=== PATIENT | male | born 1935 | race Caucasian/White ===

== ENCOUNTER 2017-09-22 10:07 | Inpatient (IN) | payer MEDICARE, BC ==
--- NOTE | 2017-09-22 11:42 | CR ---
Chest 2V INDICATION: sob FINDINGS: Comparison not available. Azygos fissure, normal variant. Shallow inspiration. Heart size i s prominent. Mild prominence of the pulmonary vascularity. Mixed interstitial and airspace opacities in bilateral mid and lower lungs. Differential considerations include CHF and atypical infectious pro cess. Chronic interstitial lung disease is also in the differential diagnosis.
[2017-09-22] MEDS ORDERED: Sodium Chloride 0.9% 1,000 ML IV SCH (12:00)
--- NOTE | 2017-09-22 12:40 | EDM.PDOC ---
ED HPI GENERAL MEDICAL PROBLEM - General Chief Complaint: Respiratory Problem Stated Complaint: SOB Time Seen by Provider: 09/22/17 10:20 Source of Information: Reports: Patient, Other ( sent from the clinic) History Limitations: Reports: No Limitations - History of Present Illness INITIAL COMMENTS - FREE TEXT/NARRATIVE: Pt states he has been sob and having difficulty moving around, Onset: Gradual, Other ( Pt has had several days of sob. ) Location: Reports: Chest, Other (pt has not noted ankle swelling. ) Associated Symptoms: Reports: Shortness of Breath, Weakness - Related Data Allergies Allergy/AdvReac Type Severity Reaction Status Date / Time No Known Allergies Allergy Verified 09/22/17 10:17 Home Meds: Home Meds Triamcinolone Acetonide [Triamcinolone Acetonide 0.1% Crm] 1 cm TOP BID PRN [History] Albuterol [Ventolin HFA] 2 puff INH QID PRN 08/29/16 [History] Allopurinol [Zyloprim] 100 mg PO DAILY 08/29/16 [History] Benzonatate [Tessalon Perles] 200 mg PO TID PRN 08/29/16 [History] Insulin Detemir [Levemir Flextouch] 24 units SUBCUT DAILY 08/29/16 [History] Tamsulosin [Flomax] 0.4 mg PO DAILY 08/29/16 [History] Topiramate [Topamax] 50 mg PO BID 08/29/16 [History] Aspirin 325 mg PO DAILY 09/22/17 [History] Clotrimazole [Clotrimazole 1%] DAILY 09/22/17 [History] Finasteride [Proscar] 5 mg PO DAILY 09/22/17 [History] Lisinopril/Hydrochlorothiazide [Lisinopril-Hctz 20-12.5 mg Tab] 09/22/17 [ History] Mupirocin Oint [Bactroban Oint] 09/22/17 [History] Omeprazole 40 mg PO DAILY 09/22/17 [History] Prednisone [IJD: predniSONE] 20 mg PO BID 09/22/17 [History] Ranitidine [Zantac] 150 mg PO BID 09/22/17 [History] Tadalafil [Cialis] 5 mg PO ASDIRECTED PRN 09/22/17 [History] Past Medical History HEENT History: Reports: Cataract, Impaired Vision Cardiovascular History: Reports: Hypertension Other Cardiovascular History: ENLARGED HEART Other Genitourinary History: stage 3 kidney disease Neurological History: Reports: Neuropathy, Diabetic Psychiatric History: Reports: Depression Endocrine/Metabolic History: Reports: Diabetes, Type II Other Hematologic History: dislipidemia Oncologic (Cancer) History: Reports: Colon - Past Surgical History GI Surgical History: Reports: Colon, Colonoscopy Other Oncologic Surgeries/Procedures: cancerous colon tumor removed 2005. Malignant neoplasm of colon Social & Family History - Tobacco Use Smoking Status *Q: Unknown Ever Smoked Years of Tobacco use: 12 Second Hand Smoke Exposure: No - Caffeine Use Caffeine Use: Reports: Coffee - Alcohol Use Days Per Week of Alcohol Use: 0 - Recreational Drug Use Recreational Drug Use: No ED ROS GENERAL - Review of Systems Review Of Systems: See Below Constitutional: Reports: Weakness HEENT: Reports: No Symptoms Respiratory: Reports: Shortness of Breath, Cough Cardiovascular: Reports: No Symptoms Endocrine: Reports: No Symptoms GI/Abdominal: Reports: No Symptoms : Reports: No Symptoms Musculoskeletal: Reports: No Symptoms Skin: Reports: No Symptoms ED EXAM, GENERAL - Physical Exam Exam: See Below Free Text/Narrative:: pt arrived with a history of progressive weakness and shortness of breath. Exam Limited By: No Limitations General Appearance: Alert, Mild Distress, Other (pt gets very winded when he moves around. ) Ears: Normal TMs Nose: Normal Inspection Throat/Mouth: Normal Inspection Head: Atraumatic Neck: Normal Inspection Respiratory/Chest: Decreased Breath Sounds, Crackles, Other (Pt does have rales to the mid lung area. ) Cardiovascular: Regular Rate, Rhythm, Other (pt has not had chest pain. ) GI/Abdominal: Soft, Non-Tender (Male) Exam: Deferred Rectal (Males) Exam: Deferred Back Exam: Normal Inspection Extremities: Other (pt has not had pain or swelling in his legs. ) Neurological: Alert, Oriented, Other (pt is a poor historian) Psychiatric: Anxious Course - Vital Signs Last Recorded V/S: Last Vital Signs Temp 36.9 C 09/22/17 10:17 Pulse 107 H 09/22/17 10:17 Resp 18 09/22/17 10:17 BP 131/62 09/22/17 10:17 Pulse Ox 95 09/22/17 10:17 Orthostatic Blood Pressure [ 128/70 Sitting] - Orders/Labs/Meds Orders: Active Orders 24 hr Category Date Time Status Patient Status Manage Transfer [TRANSFER] Routine ADT 09/22/17 12:05 Active EKG Documentation Completion [RC] ASDIRECTED Care 09/22/17 10:28 Active Orthostatic Vital Signs [RC] ASDIRECTED Care 09/22/17 11:54 Active INFLUENZA A+B AG SCREEN [RM] Stat Lab 09/22/17 12:01 Uncollected Sodium Chloride 0.9% [Normal Saline] 1,000 ml Med 09/22/17 12:00 Active IV ASDIRECTED Resuscitation Status Routine Resus Stat 09/22/17 12:08 Ordered EKG 12 Lead [EK] Routine Ther 09/22/17 10:28 Ordered Medication Orders Sodium Chloride (Normal Saline) 1,000 mls @ 250 mls/hr IV ASDIRECTED ELO Labs: Laboratory Tests 09/22/17 09/22/17 09/22/17 Range/Units 10:37 10:37 10:37 WBC 6.7 (4.5-11.0) K/uL RBC 3.84 L (4.30-5.90) M/uL Hgb 10.9 L (12.0-15.0) g/dL Hct 33.0 L (40.0-54.0) % MCV 86 (80-98) fL MCH 28 (27-31) pg MCHC 33 (32-36) % Plt Count 152 (150-400) K/uL Add Manual Diff Yes Neutrophils % (Manual) 67 H (36-66) % Band Neutrophils % 2 L (5-11) % Lymphocytes % (Manual) 21 L (24-44) % Monocytes % (Manual) 9 H (2-6) % Eosinophils % (Manual) 1 L (2-4) % Sodium 141 (140-148) mmol/L Potassium 4.8 (3.6-5.2) mmol/L Chloride 109 H (100-108) mmol/L Carbon Dioxide 23 (21-32) mmol/L Anion Gap 13.8 (5.0-14.0) mmol/L BUN 38 H (7-18) mg/dL Creatinine 2.1 H (0.8-1.3) mg/dL Est Cr Clr Drug Dosing 29.45 mL/min Estimated GFR (MDRD) 31 L (>60) Glucose 182 H (74-106) mg/dL Lactic Acid (0.4-2.0) mmol/L Calcium 8.3 L (8.5-10.1) mg/dL Total Bilirubin 0.7 (0.2-1.0) mg/dL AST 13 L (15-37) U/L ALT 21 (12-78) U/L Alkaline Phosphatase 63 (46-116) U/L Creatine Kinase 41 (39-308) U/L Troponin I 0.035 (0.000-0.056) ng/mL NT-Pro-B Natriuret Pep (5-450) pg/mL Total Protein 5.4 L (6.4-8.2) g/dL Albumin 2.9 L (3.4-5.0) g/dL Globulin 2.5 (2.3-3.5) g/dL Albumin/Globulin Ratio 1.2 (1.2-2.2) Urine Color Urine Appearance Urine pH (4.5-8.0) Ur Specific [place] (1.008-1.030) Urine Protein (NEGATIVE) mg/dL Urine Glucose (UA) (NEGATIVE) mg/dL Urine Ketones (NEGATIVE) mg/dL Urine Occult Blood (NEGATIVE) Urine Nitrite (NEGAITVE) Urine Bilirubin (NEGATIVE) Urine Urobilinogen (NORMAL) mg/dL Ur Leukocyte Esterase (NEGATIVE) Urine RBC (0-5) Urine WBC (0-5) Ur Epithelial Cells Amorphous Sediment Urine Bacteria Urine Mucus 09/22/17 09/22/17 09/22/17 Range/Units 11:00 11:32 11:52 WBC (4.5-11.0) K/uL RBC (4.30-5.90) M/uL Hgb (12.0-15.0) g/dL Hct (40.0-54.0) % MCV (80-98) fL MCH (27-31) pg MCHC (32-36) % Plt Count (150-400) K/uL Add Manual Diff Neutrophils % (Manual) (36-66) % Band Neutrophils % (5-11) % Lymphocytes % (Manual) (24-44) % Monocytes % (Manual) (2-6) % Eosinophils % (Manual) (2-4) % Sodium (140-148) mmol/L Potassium (3.6-5.2) mmol/L Chloride (100-108) mmol/L Carbon Dioxide (21-32) mmol/L Anion Gap (5.0-14.0) mmol/L BUN (7-18) mg/dL Creatinine (0.8-1.3) mg/dL Est Cr Clr Drug Dosing mL/min Estimated GFR (MDRD) (>60) Glucose (74-106) mg/dL Lactic Acid 1.2 (0.4-2.0) mmol/L Calcium (8.5-10.1) mg/dL Total Bilirubin (0.2-1.0) mg/dL AST (15-37) U/L ALT (12-78) U/L Alkaline Phosphatase (46-116) U/L Creatine Kinase (39-308) U/L Troponin I (0.000-0.056) ng/mL NT-Pro-B Natriuret Pep 252 (5-450) pg/mL Total Protein (6.4-8.2) g/dL Albumin (3.4-5.0) g/dL Globulin (2.3-3.5) g/dL Albumin/Globulin Ratio (1.2-2.2) Urine Color Yellow Urine Appearance Clear Urine pH 7.0 (4.5-8.0) Ur Specific [place] 1.005 L (1.008-1.030) Urine Protein Negative (NEGATIVE) mg/dL Urine Glucose (UA) Normal (NEGATIVE) mg/dL Urine Ketones Negative (NEGATIVE) mg/dL Urine Occult Blood Negative (NEGATIVE) Urine Nitrite Negative (NEGAITVE) Urine Bilirubin Negative (NEGATIVE) Urine Urobilinogen Normal (NORMAL) mg/dL Ur Leukocyte Esterase Negative (NEGATIVE) Urine RBC 0-5 (0-5) Urine WBC 0-5 (0-5) Ur Epithelial Cells Few Amorphous Sediment Not seen Urine Bacteria Few Urine Mucus Not seen Meds: Medications Generic Name Dose Route Start Last Admin Trade Name Freq PRN Reason Stop Dose Admin Sodium Chloride 1,000 mls @ 250 mls/hr 09/22/17 12:00 Normal Saline IV ASDIRECTED [facility] - Re-Assessments/Exams Free Text/Narrative Re-Assessment/Exam: 09/22/17 12:41 pt has a creatnine of 2.1. He has normal cardiac enzymes and bnp. His chest xray shows a definite infiltrate and this does look atypical, interstial. Pt has a hg of 10.7. Departure - Departure Time of Disposition: 12:43 Disposition: Admitted As Inpatient 68 Condition: Fair Clinical Impression: Atypical pneumonia, Renal insufficiency - Discharge Information Referrals: Charles Saini MD [Primary Care Provider] - Care Plan Goals: admit to Hosp. - My Orders Last 24 Hours: My Active Orders 09/22/17 10:28 EKG Documentation Completion [RC] ASDIRECTED EKG 12 Lead [EK] Routine 09/22/17 11:54 Orthostatic Vital Signs [RC] ASDIRECTED 09/22/17 12:00 Sodium Chloride 0.9% [Normal Saline] 1,000 ml IV ASDIRECTED 09/22/17 12:01 INFLUENZA A+B AG SCREEN [RM] Stat - Assessment/Plan Last 24 Hours: My Active Orders 09/22/17 10:28 EKG Documentation Completion [RC] ASDIRECTED EKG 12 Lead [EK] Routine 09/22/17 11:54 Orthostatic Vital Signs [RC] ASDIRECTED 09/22/17 12:00 Sodium Chloride 0.9% [Normal Saline] 1,000 ml IV ASDIRECTED 09/22/17 12:01 INFLUENZA A+B AG SCREEN [RM] Stat
--- NOTE | 2017-09-22 12:49 | PCM.HP ---
H&P History of Present Illness - General Date of Service: 09/22/17 Admit Problem/Dx: Source of Information: Patient, Provider, RN Notes Reviewed History Limitations: Reports: No Limitations - History of Present Illness Initial Comments - Free Text/Narative: Mr. Tarango is a 81-year-old gentleman who is admitted through the emergency department because of profound weakness and orthostasis. He was feeling well until 3 days ago when he developed progressive weakness associated with lightheadedness with standing. He is noted to have a decrease in one pressure from lying to standing. He does have some underlying pulmonary disease but denies these been more short of breath and also denies fever, chills, or sweats. He has a chronic cough but does not think that it significantly worse over the past few days. He has noted onset of pain in his upper back lower neck that seem to come on about the same time as the weakness. Chest x-ray shows evidence of bilateral infiltrates, infection versus pulmonary fibrosis. White blood cell count is normal, other than a mild tachycardia and orthostasis, has been hemodynamically stable in the emergency department. - Related Data Allergies/Adverse Reactions: Allergies Allergy/AdvReac Type Severity Reaction Status Date / Time No Known Allergies Allergy Verified 09/22/17 10:17 Home Medications: Home Meds Triamcinolone Acetonide [Triamcinolone Acetonide 0.1% Crm] 1 cm TOP BID PRN [History] Albuterol [Ventolin HFA] 2 puff INH QID PRN 08/29/16 [History] Allopurinol [Zyloprim] 100 mg PO DAILY 08/29/16 [History] Benzonatate [Tessalon Perles] 200 mg PO TID PRN 08/29/16 [History] Insulin Detemir [Levemir Flextouch] 24 units SUBCUT DAILY 08/29/16 [History] Tamsulosin [Flomax] 0.4 mg PO DAILY 08/29/16 [History] Topiramate [Topamax] 50 mg PO BID 08/29/16 [History] Aspirin 325 mg PO DAILY 09/22/17 [History] Clotrimazole [Clotrimazole 1%] DAILY 09/22/17 [History] Finasteride [Proscar] 5 mg PO DAILY 09/22/17 [History] Lisinopril/Hydrochlorothiazide [Lisinopril-Hctz 20-12.5 mg Tab] 09/22/17 [ History] Mupirocin Oint [Bactroban Oint] 09/22/17 [History] Omeprazole 40 mg PO DAILY 09/22/17 [History] Prednisone [IJD: predniSONE] 20 mg PO BID 09/22/17 [History] Ranitidine [Zantac] 150 mg PO BID 09/22/17 [History] Tadalafil [Cialis] 5 mg PO ASDIRECTED PRN 09/22/17 [History] Past Medical History HEENT History: Reports: Cataract, Impaired Vision Cardiovascular History: Reports: Hypertension Other Cardiovascular History: ENLARGED HEART Other Genitourinary History: stage 3 kidney disease Neurological History: Reports: Neuropathy, Diabetic Psychiatric History: Reports: Depression Endocrine/Metabolic History: Reports: Diabetes, Type II Other Hematologic History: dislipidemia Oncologic (Cancer) History: Reports: Colon - Past Surgical History GI Surgical History: Reports: Colon, Colonoscopy Other Oncologic Surgeries/Procedures: cancerous colon tumor removed 2005. Malignant neoplasm of colon Social & Family History - Tobacco Use Smoking Status *Q: Unknown Ever Smoked Years of Tobacco use: 12 Second Hand Smoke Exposure: No - Caffeine Use Caffeine Use: Reports: Coffee - Alcohol Use Days Per Week of Alcohol Use: 0 - Recreational Drug Use Recreational Drug Use: No H&P Review of Systems - Review of Systems: Review Of Systems: See Below General: Reports: Weakness. Denies: Fever, Chills, Diaphoresis, Decreased Appetite HEENT: Reports: No Symptoms Pulmonary: Reports: Shortness of Breath, Cough. Denies: Wheezing, Pleuritic Chest Pain, Sputum, Hemoptysis Cardiovascular: Reports: Dyspnea on Exertion, Lightheadedness. Denies: Chest Pain, Palpitations, Orthopnea, PND, Edema, Syncope Gastrointestinal: Reports: No Symptoms Genitourinary: Reports: No Symptoms Musculoskeletal: Reports: Neck Pain, Back Pain Skin: Reports: No Symptoms Psychiatric: Reports: No Symptoms Neurological: Reports: No Symptoms Hematologic/Lymphatic: Reports: No Symptoms Immunologic: Reports: No Symptoms Exam - Exam Exam: See Below - Vital Signs Vital Signs: Last Vital Signs Temp 98.4 F 09/22/17 10:17 Pulse 107 H 09/22/17 10:17 Resp 18 09/22/17 10:17 BP 131/62 09/22/17 10:17 Pulse Ox 95 09/22/17 10:17 Orthostatic Blood Pressure [ 135/74 Standing] Orthostatic Blood Pressure [ 128/70 Sitting] Weight: 179 lb - Exam Quality Assessment: DVT Prophylaxis. No: Supplemental Oxygen General: Alert, Oriented, Cooperative, Mild Distress HEENT: Conjunctiva Clear, Hearing Intact, Normal Nasal Septum, Posterior Pharynx Clear, Pupils Equal. No: Mucosa Moist & [place] Neck: Supple, Trachea Midline, +2 Carotid Pulse wo Bruit Lungs: Decreased Breath Sounds, Rales. No: Crackles, Rhonchi, Rub, Stridor Cardiovascular: Regular Rhythm, Normal S1, Normal S2, Tachycardia. No: Irregular Rhythm, Bradycardia, Systolic Murmur, Diastolic Murmur GI/Abdominal Exam: Soft, Non-Tender, No Organomegaly, No Distention Back Exam: Normal Inspection, Full Range of Motion, Paraspinal Tenderness, Vertebral Tenderness Extremities: Non-Tender, No Pedal Edema Skin: Warm, Dry, Intact Neurological: Cranial Nerves Intact, Strength Equal Bilateral, Normal Speech, Normal Tone, Sensation Intact. No: Focal Deficit Neuro Extensive - Mental Status: Alert, Oriented x3, Normal Mood/Affect, Normal Cognition, Memory Intact - Patient Data Result Diagrams: 09/22/17 10:37 09/22/17 10:37 *Q Meaningful Use (ADM) - VTE *Q VTE Criteria *Q: VTE Pharmacological Contraindications *Q: Renal Impairment - VTE Risk Assess *Q Each Risk Factor Represents 1 Point: Serious lung disease including pneumonia Total Score 1 Point Risk Factors: 1 Each Risk Factor Represents 2 Points: None Total Score 2 Point Risk Factors: 0 Each Risk Factor Represents 3 Points: Age 75 Years or Greater Total Score 3 Point Risk Factors: 3 Each Risk Factor Represents 5 Points: None Total Score 5 Point Risk Factors: 0 Venous Thromboembolism Risk Factor Score *Q: 4 - Stroke *Q Stroke Criteria *Q: - AMI *Q AMI Criteria *Q: Problem List Initiated/Reviewed/Updated: Yes Orders Last 24hrs: Active Orders 24 hr Category Date Time Status Chest wo Cont [CT] Stat Exams 09/22/17 12:42 Ordered Resuscitation Status Routine Resus Stat 09/22/17 12:08 Ordered Medication Orders Sodium Chloride (Normal Saline) 1,000 mls @ 250 mls/hr IV ASDIRECTED [facility] Assessment/Plan Comment:: ASSESSMENT AND PLAN ORTHOSTATIC HYPOTENSION AND WEAKNESS-symptoms present for 3 days, white blood cell count normal. Possible underlying viral infection, chest x-ray shows bilateral pulmonary infiltrates. He denies increased shortness of breath or worsening of his chronic cough. -Evaluate for other source of infection including urinalysis -IV fluids for hydration -Cardiac monitoring -Orthostatic vital signs ABNORMAL CHEST C-OJB-[id number] infiltrates versus pulmonary fibrosis -CT scan of the chest to further evaluate TYPE 2 DIABETES MELLITUS -Continue usual dose of long-acting insulin -Low-dose sliding scale NovoLog -4 times a day glucometers CHRONIC KIDNEY DISEASE STAGE III -Closely monitor urine output and renal function UPPER BACK PAIN-he denies a precipitating injury. Most of tenderness seems to be in the paraspinous muscles, likely secondary to muscle strain -Continue to monitor and consider further evaluation if symptoms persist or worsen MAINTENANCE ISSUES -DVT prophylaxis; Lovenox 30 mg subcutaneous daily -GI prophylaxis; continue outpatient PPI therapy -[place] catheter; not indicated -Nutrition; consistent carb diet -Nicotine dependence; not required CODE STATUS-FULL CODE ADMISSION STATUS-patient will be admitted to inpatient status, expect at least a 2 night hospital stay for evaluation and management of problems as outlined above. At the time of this admission I do not reasonably expected evaluation and management of this problem will require more than a 96 hour hospital stay. DISPOSITION-anticipate discharge to home after the hospital stay. PRIMARY CARE PROVIDER-Dr. Saini
[2017-09-22] MEDS ORDERED: Albuterol 8 GM Inhaler INH PRN (13:36)
[2017-09-22] MEDS ORDERED: Sodium Chloride 0.9% 10 ML Syringe FLUSH PRN (13:36)
[2017-09-22] MEDS ORDERED: Albuterol 0.083% 2.5 MG/3 ML Neb Soln NEB PRN (13:36)
[2017-09-22] MEDS ORDERED: oxyCODONE 5 MG Tab PO PRN (13:36)
[2017-09-22] MEDS ORDERED: Polyethylene Glycol 3350 Powder 17 GM Packet PO PRN (13:36)
[2017-09-22] MEDS ORDERED: Magnesium Hydroxide 400 MG/5 ML Susp 30 ML Cup PO PRN (13:36)
[2017-09-22] MEDS ORDERED: Ondansetron 4 MG/2 ML SDV IV PRN (13:36)
[2017-09-22] MEDS ORDERED: 50% Dextrose in Water 50 ML Syringe IV PRN (13:36)
[2017-09-22] MEDS ORDERED: Benzonatate 100 MG Cap PO PRN (13:36)
[2017-09-22] MEDS ORDERED: Glucose Gel 15 GM in 37.5 GM Tube PO PRN (13:36)
[2017-09-22] MEDS ORDERED: Lactated Ringers 500 ML IV ONE (13:45)
--- NOTE | 2017-09-22 13:45 | CT ---
Chest wo Cont Total DLP 335 mGycm. INDICATION: Bilateral infiltrates versus fibrosis on CXR COMPARISON: CT chest 05/14/2015. FINDINGS: Slight interval worsening of chronic appearing interstitial infiltrates most marked periphe rally throughout both lungs. No definitive honeycombing. Benign calcified granuloma in the lingula. N o new focal consolidation. Azygos fissure, normal variant. Presumed renal cysts. Stable nodularity of the adrenal glands. Exam otherwise negative. IMPRESSION: Slight interval worsening of chronic appearing interstitial infiltrates. Differential con siderations include early UIP and NSIP.
[2017-09-22] MEDS ORDERED: Lactated Ringers 1,000 ML IV SCH (14:00)
[2017-09-22] MEDS ORDERED: Enoxaparin 30 MG/0.3 ML Syringe SUBCUT SCH (15:00)
[2017-09-22] MEDS ORDERED: Albuterol/Ipratropium 3.0-0.5 MG/3 ML Neb Soln NEB SCH (15:00)
[2017-09-22] MEDS: Insulin Aspart 100 Units/ML 3 ML Pen SUBCUT SCH ×2 (17:04→20:57)
[2017-09-22] MEDS: Topiramate 25 MG Tab PO SCH (20:57)
[2017-09-22] MEDS ORDERED: TOPIRAMATE 50 MG PO SCH (21:00)
[2017-09-22] MEDS ORDERED: Non-Formulary Medication 1 Each (Ranitidine [Zantac] 150 MG) PO SCH (21:00)
[2017-09-22] MEDS: Lactated Ringers 1,000 ML IV SCH (22:57)
[2017-09-23] MEDS: Lactated Ringers 1,000 ML IV SCH (07:04)
[2017-09-23] MEDS: Insulin Aspart 100 Units/ML 3 ML Pen SUBCUT SCH ×4 (07:45→21:07)
[2017-09-23] MEDS ORDERED: Non-Formulary Medication 1 Each (Aspirin [Aspirin] 325 MG) PO SCH (09:00)
[2017-09-23] MEDS ORDERED: Non-Formulary Medication 1 Each (Omeprazole [Omeprazole] 40 MG) PO SCH (09:00)
[2017-09-23] MEDS: Pantoprazole 40 MG Tab.CR PO SCH (09:04)
[2017-09-23] MEDS: Tamsulosin 0.4 MG Cap.ER PO SCH (09:04)
[2017-09-23] MEDS: Insulin Detemir 100 Units/ML 3 ML Pen SUBCUT SCH (09:04)
[2017-09-23] MEDS: Aspirin 325 MG Tab.EC PO SCH (09:04)
[2017-09-23] MEDS: Finasteride 5 MG Tab PO SCH (09:08)
[2017-09-23] MEDS: Topiramate 25 MG Tab PO SCH ×2 (09:08→21:08)
[2017-09-23] MEDS: Allopurinol 100 MG Tab PO SCH (09:09)
--- NOTE | 2017-09-23 10:03 | PCM.PN ---
- General Info Date of Service: 09/23/17 Subjective Update: Mr. Tarango was admitted yesterday with weakness and lightheadedness, initially felt as though he probably had some pneumonia. CT scan was obtained and showed evidence of pulmonary fibrosis but no obvious infectious infiltrate. He's feeling somewhat better following hydration and has not had significant drop in orthostatic pressures since admission. Continues to experience significant upper back pain and after hydration there's been further drop in hemoglobin level. He does have significant chronic kidney disease which may be a factor in his ongoing anemia. Functional Status: Reports: Tolerating Diet, Urinating - Review of Systems General: Reports: Weakness. Denies: Fever, Chills Pulmonary: Reports: Shortness of Breath, Cough. Denies: Pleuritic Chest Pain, Sputum, Hemoptysis, Wheezing Cardiovascular: Reports: Dyspnea on Exertion. Denies: Chest Pain, Palpitations , Orthopnea, PND, Edema Gastrointestinal: Reports: No Symptoms - Patient Data Vitals - Most Recent: Last Vital Signs Temp 98.0 F 09/23/17 07:00 Pulse 94 09/23/17 08:37 Resp 20 09/23/17 07:00 BP 133/59 L 09/23/17 08:37 Pulse Ox 66 L 09/23/17 08:37 Orthostatic Blood Pressure [ 130/48 lying] Orthostatic Blood Pressure [ 133/56 Standing] Orthostatic Blood Pressure [ 138/60 Sitting] Weight - Most Recent: 175 lb 3.2 oz I&O - Last 24 Hours: Intake & Output 09/22/17 09/23/17 09/23/17 22:59 06:59 14:59 Intake Total 500 2800 Balance 500 2800 Lab Results Last 24 Hours: Laboratory Results - last 24 hr 09/23/17 09/23/17 09/23/17 Range/Units 04:55 04:55 04:55 WBC 5.2 (4.5-11.0) K/uL RBC 3.37 L (4.30-5.90) M/uL Hgb 9.3 L (12.0-15.0) g/dL Hct 29.2 L (40.0-54.0) % MCV 87 (80-98) fL MCH 28 (27-31) pg MCHC 32 (32-36) % Plt Count 134 L (150-400) K/uL Add Manual Diff Yes Neutrophils % (Manual) 67 H (36-66) % Band Neutrophils % 1 L (5-11) % Lymphocytes % (Manual) 20 L (24-44) % Monocytes % (Manual) 12 H (2-6) % Sodium 141 (140-148) mmol/L Potassium 4.6 (3.6-5.2) mmol/L Chloride 111 H (100-108) mmol/L Carbon Dioxide 23 (21-32) mmol/L Anion Gap 11.6 (5.0-14.0) mmol/L BUN 29 H (7-18) mg/dL Creatinine 1.6 H (0.8-1.3) mg/dL Est Cr Clr Drug Dosing 38.65 mL/min Estimated GFR (MDRD) 42 L (>60) Glucose 153 H (74-106) mg/dL Calcium 8.2 L (8.5-10.1) mg/dL TSH, Ultra Sensitive 0.832 (0.358-3.740) uIU/mL Derek Results Last 24 Hours: Microbiology 09/22/17 12:46 Influenza Type A Antigen Screen - Final Nasopharyngeal Swab - Nare, Left NEGATIVE INFLUENZA A VIRUS AG Influenza Type B Antigen Screen - Final NEGATIVE INFLUENZA B VIRUS AG Med Orders - Current: Current Medications Acetaminophen (Tylenol) 650 mg PO Q4H PRN PRN Reason: Pain (Mild 1-3)/fever Albuterol (Ventolin Hfa) 0 gm INH QID PRN PRN Reason: Cough Albuterol (Proventil Neb Soln) 2.5 mg NEB Q4H PRN PRN Reason: Shortness Of Breath/wheezing Allopurinol (Zyloprim) 100 mg PO DAILY [facility] Last Admin: 09/23/17 09:09 Dose: 100 mg Aspirin (Ecotrin) 325 mg PO DAILY [facility] Last Admin: 09/23/17 09:04 Dose: 325 mg Benzonatate (Tessalon Perles) 200 mg PO TID PRN PRN Reason: Cough Dextrose (Glutose 15) 15 gm PO ASDIRECTED PRN PRN Reason: Hypoglycemia Dextrose/Water (Dextrose 50% In Water) 50 ml IV ASDIRECTED PRN PRN Reason: Hypoglycemia Enoxaparin Sodium (Lovenox) 30 mg SUBCUT Q24H [facility] Last Admin: 09/22/17 15:02 Dose: 30 mg Finasteride (Proscar) 5 mg PO DAILY [facility] Last Admin: 09/23/17 09:08 Dose: 5 mg Lactated Ringer's (Ringers, Lactated) 1,000 mls @ 125 mls/hr IV ASDIRECTED [facility] Last Admin: 09/23/17 07:04 Dose: 125 mls/hr Insulin Aspart (Novolog) 0 unit SUBCUT QIDACANDBED [facility] PRN Reason: Protocol Last Admin: 09/23/17 07:45 Dose: Not Given Insulin Detemir (Levemir) 24 unit SUBCUT DAILY [facility] Last Admin: 09/23/17 09:04 Dose: 24 units Magnesium Hydroxide (Milk Of Magnesia) 30 ml PO Q12H PRN PRN Reason: Constipation Ondansetron HCl (Zofran) 4 mg IV Q4H PRN PRN Reason: Nausea/Vomiting Oxycodone HCl (Oxycodone) 5 mg PO Q4H PRN PRN Reason: Pain (moderate 4-6) Last Admin: 09/23/17 09:13 Dose: 5 mg Pantoprazole Sodium (Protonix) 40 mg PO ACBREAKFAST [facility] Last Admin: 09/23/17 09:04 Dose: 40 mg Polyethylene Glycol (Miralax) 17 gm PO DAILY PRN PRN Reason: Constipation Ranitidine HCl (Zantac) 150 mg PO BID [facility] Last Admin: 09/23/17 09:08 Dose: 150 mg Senna/Docusate Sodium (Senna Plus) 1 tab PO BID PRN PRN Reason: Constipation Sodium Chloride (Saline Flush) 10 ml FLUSH ASDIRECTED PRN PRN Reason: Keep Vein Open Tamsulosin HCl (Flomax) 0.4 mg PO DAILY [facility] Last Admin: 09/23/17 09:04 Dose: 0.4 mg Topiramate (Topamax) 50 mg PO BID [facility] Last Admin: 09/23/17 09:08 Dose: 50 mg Discontinued Medications Albuterol/Ipratropium (Duoneb 3.0-0.5 Mg/3 Ml) 3 ml NEB QIDRT [facility] Sodium Chloride (Normal Saline) 1,000 mls @ 250 mls/hr IV ASDIRECTED [facility] Last Admin: 09/22/17 12:47 Dose: 250 mls/hr Lactated Ringer's (Ringers, Lactated) 1,000 mls @ 250 mls/hr IV ASDIRECTED ELO Stop: 09/22/17 20:00 Last Admin: 09/22/17 14:36 Dose: 250 mls/hr - Exam Quality Assessment: Supplemental Oxygen, DVT Prophylaxis General: Alert, Oriented, Cooperative, Mild Distress Lungs: Normal Respiratory Effort, Crackles. No: Rales, Rhonchi, Wheezing Cardiovascular: Regular Rate, Regular Rhythm, No Murmurs GI/Abdominal Exam: Soft, Non-Tender, No Organomegaly, No Distention Extremities: Non-Tender, No Pedal Edema Skin: Warm, Dry, Intact - Problem List Review Problem List Initiated/Reviewed/Updated: Yes - My Orders Last 24 Hours: My Active Orders 09/22/17 12:08 Resuscitation Status Routine 09/22/17 12:58 Orthostatic Vital Signs [RC] Q6HR 09/22/17 13:36 Patient Status [ADT] Routine Ambulate [RC] QID Blood Glucose Check, Bedside [RC] QIDACANDBED Cardiac Monitoring [RC] .As Directed Communication Order [RC] STAT Diabetes Education [RC] Click to Edit Height and Weight [RC] DAILY Intake and Output [RC] QSHIFT Notify Provider Vital Signs [RC] ASDIRECTED Notify Provider [RC] PRN Oxygen Therapy [RC] PRN Peripheral IV Care [RC] . DIRECTED Pulse Oximetry [RC] CONTINUOUS RT Aerosol Therapy [RC] ASDIRECTED Up With Assistance [RC] ASDIRECTED Up to Chair [RC] QID VTE/DVT Education [RC] Per Unit Routine Vital Signs [RC] Q4H PT Evaluation and Treatment [CONS] Routine CULTURE RESPIRATORY + SMEAR [RM] Stat Acetaminophen [Tylenol] 650 mg PO Q4H PRN Albuterol [Proventil Neb Soln] 2.5 mg NEB Q4H PRN Albuterol [Ventolin HFA] 0 gm INH QID PRN Benzonatate [Tessalon Perles] 200 mg PO TID PRN Dextrose 50% in Water 50 ml IV ASDIRECTED PRN Dextrose [Glutose 15] 15 gm PO ASDIRECTED PRN Docusate Sodium/Sennosides [Senna Plus] 1 tab PO BID PRN Magnesium Hydroxide [Milk of Magnesia] 30 ml PO Q12H PRN Ondansetron [Zofran] 4 mg IV Q4H PRN Polyethylene Glycol 3350 [MiraLAX] 17 gm PO DAILY PRN Sodium Chloride 0.9% [Saline Flush] 10 ml FLUSH ASDIRECTED PRN oxyCODONE 5 mg PO Q4H PRN Blood Culture x2 Reflex Set [OM.PC] Stat Peripheral IV Insertion Adult [OM.PC] Routine 09/22/17 13:50 CULTURE BLOOD [BC] Stat 09/22/17 13:55 CULTURE BLOOD [BC] Stat 09/22/17 15:00 Enoxaparin [Lovenox] 30 mg SUBCUT Q24H 09/22/17 17:00 Insulin Aspart [NovoLOG] See Protocol SUBCUT QIDACANDBED 09/22/17 20:05 Lactated Ringers [Ringers, Lactated] 1,000 ml IV ASDIRECTED 09/22/17 21:00 Ranitidine [Zantac] 150 mg PO BID Topiramate [Topamax] 50 mg PO BID 09/22/17 Lunch Consistent Carbohydrate Diet [DIET] 09/23/17 07:30 Pantoprazole [ProTONIX] 40 mg PO ACBREAKFAST 09/23/17 09:00 Allopurinol [Zyloprim] 100 mg PO DAILY Aspirin [Ecotrin] 325 mg PO DAILY Finasteride [Proscar] 5 mg PO DAILY Insulin Detemir [Levemir] 24 unit SUBCUT DAILY Tamsulosin [Flomax] 0.4 mg PO DAILY 09/23/17 09:53 Thoracic Spine wo Cont [CT] Stat 09/23/17 09:55 Convert IV to Saline Lock [OM.PC] Routine 09/23/17 09:56 FOLIC ACID [CHEM] Routine IRON/TIBC [CHEM] Routine LACTATE DEHYDROGENASE,LDH [CHEM] Routine PATHOLOGIST'S DIFFERENTIAL [REF] Routine RETICULOCYTE COUNT [HEME] Routine VITAMIN B12 [CHEM] Routine 09/23/17 11:30 GLUCOSE POC LAB TO COLLECT [POC] QIDACANDBED 09/23/17 16:30 GLUCOSE POC LAB TO COLLECT [POC] QIDACANDBED 09/23/17 21:00 GLUCOSE POC LAB TO COLLECT [POC] QIDACANDBED 09/24/17 05:00 BASIC METABOLIC PANEL,BMP [CHEM] Timed CBC WITH AUTO DIFF [HEME] Timed 09/24/17 07:30 GLUCOSE POC LAB TO COLLECT [POC] QIDACANDBED 09/24/17 11:30 GLUCOSE POC LAB TO COLLECT [POC] QIDACANDBED 09/24/17 16:30 GLUCOSE POC LAB TO COLLECT [POC] QIDACANDBED 09/24/17 21:00 GLUCOSE POC LAB TO COLLECT [POC] QIDACANDBED 09/25/17 07:30 GLUCOSE POC LAB TO COLLECT [POC] QIDACANDBED 09/25/17 11:30 GLUCOSE POC LAB TO COLLECT [POC] QIDACANDBED 09/25/17 16:30 GLUCOSE POC LAB TO COLLECT [POC] QIDACANDBED 09/25/17 21:00 GLUCOSE POC LAB TO COLLECT [POC] QIDACANDBED 09/26/17 07:30 GLUCOSE POC LAB TO COLLECT [POC] QIDACANDBED 09/26/17 11:30 GLUCOSE POC LAB TO COLLECT [POC] QIDACANDBED 09/26/17 16:30 GLUCOSE POC LAB TO COLLECT [POC] QIDACANDBED 09/26/17 21:00 GLUCOSE POC LAB TO COLLECT [POC] QIDACANDBED 09/27/17 07:30 GLUCOSE POC LAB TO COLLECT [POC] QIDACANDBED 09/27/17 11:30 GLUCOSE POC LAB TO COLLECT [POC] QIDACANDBED 09/27/17 16:30 GLUCOSE POC LAB TO COLLECT [POC] QIDACANDBED 09/27/17 21:00 GLUCOSE POC LAB TO COLLECT [POC] QIDACANDBED - Plan Plan:: ASSESSMENT AND PLAN ORTHOSTATIC HYPOTENSION AND WEAKNESS- symptomatically improved since admission, no other obvious source of infection identified in no significant evidence of pulmonary infection. Orthostatic vital signs showed no significant drop in blood pressure with standing. -Saline lock IV -Cardiac monitoring -Orthostatic vital signs PULMONARY FIBROSIS-chronic findings noted on CT scan, no evidence of underlying infection -Supplemental oxygen as needed TYPE 2 DIABETES MELLITUS -Continue usual dose of long-acting insulin -Low-dose sliding scale NovoLog -4 times a day glucometers CHRONIC KIDNEY DISEASE STAGE III -Closely monitor urine output and renal function UPPER BACK PAIN-he denies a precipitating injury. Persistent pain since admission -CT scan of the thoracic spine to evaluate new onset of pain MAINTENANCE ISSUES -DVT prophylaxis; Lovenox 30 mg subcutaneous daily -GI prophylaxis; continue outpatient PPI therapy -Bonilla catheter; not indicated -Nutrition; consistent carb diet -Nicotine dependence; not required CODE STATUS-FULL CODE ADMISSION STATUS-patient will be admitted to inpatient status, expect at least a 2 night hospital stay for evaluation and management of problems as outlined above. At the time of this admission I do not reasonably expected evaluation and management of this problem will require more than a 96 hour hospital stay. DISPOSITION-anticipate discharge to home after the hospital stay. PRIMARY CARE PROVIDER-Dr. Saini
[2017-09-23] MEDS ORDERED: Sodium Ferric Gluconate Cmplex 250 MG in Sodium Chloride 0.9% 100 ML IV ONE (11:00)
--- NOTE | 2017-09-23 11:07 | CT ---
Thoracic Spine wo Cont Total DLP 677 mGycm. INDICATION: Abrupt onset of severe upper back pain COMPARISON: CT chest from yesterday. FINDINGS: Mild degenerative disc space narrowing and endplate hypertrophic change in the mid and lowe r thoracic spine. No evidence for compression fracture or cortical destruction. Posterior elements ar e intact. There is not more than mild neural foraminal narrowing at any level. No spinal canal narrow ing. Chronic appearing interstitial changes in the periphery of both lungs. Azygos fissure. Presumed renal cysts. Arterial calcifications. Cardiac enlargement. Mild nodularity of the adrenal glands. Exa m otherwise negative. IMPRESSION: No acute findings.
[2017-09-23] MEDS ORDERED: Enoxaparin 30 MG/0.3 ML Syringe SUBCUT SCH (11:24)
[2017-09-23] MEDS: Enoxaparin 40 MG/0.4 ML Syringe SUBCUT SCH (14:29)
[2017-09-23] MEDS: Iron Polysaccharides Complex 150 MG Cap PO SCH (21:08)
[2017-09-23] MEDS: Acetaminophen 325 MG Tab PO PRN (21:14)
[2017-09-24] MEDS: Insulin Aspart 100 Units/ML 3 ML Pen SUBCUT SCH ×4 (08:07→21:01)
[2017-09-24] MEDS: Iron Polysaccharides Complex 150 MG Cap PO SCH ×2 (08:10→20:38)
[2017-09-24] MEDS: Allopurinol 100 MG Tab PO SCH (08:10)
[2017-09-24] MEDS: Finasteride 5 MG Tab PO SCH (08:11)
[2017-09-24] MEDS: Tamsulosin 0.4 MG Cap.ER PO SCH (08:11)
[2017-09-24] MEDS: Insulin Detemir 100 Units/ML 3 ML Pen SUBCUT SCH (08:11)
[2017-09-24] MEDS: Aspirin 325 MG Tab.EC PO SCH (08:11)
[2017-09-24] MEDS: Pantoprazole 40 MG Tab.CR PO SCH (08:11)
[2017-09-24] MEDS: Topiramate 25 MG Tab PO SCH ×2 (08:11→20:42)
[2017-09-24] MEDS ORDERED: Sodium Ferric Gluconate Cmplex 250 MG in Sodium Chloride 0.9% 100 ML IV ONE (09:00)
--- NOTE | 2017-09-24 09:45 | PCM.PN ---
- General Info Date of Service: 09/24/17 Subjective Update: Mr. Tarango continues to experience upper back pain, CT scan of the thoracic spine showed no evidence of fractures or other significant bony abnormalities to explain the pain. Does seem to be more in the paraspinous muscles than vertebral in location. He has been able to be up and ambulating without significant lightheadedness, shortness of breath is stable. - Review of Systems General: Denies: Fever, Weakness, Chills Pulmonary: Reports: Shortness of Breath. Denies: Pleuritic Chest Pain, Cough, Sputum, Hemoptysis, Wheezing Cardiovascular: Reports: Dyspnea on Exertion. Denies: Chest Pain, Palpitations , Orthopnea, PND, Edema, Lightheadedness Gastrointestinal: Reports: No Symptoms Musculoskeletal: Reports: Back Pain - Patient Data Vitals - Most Recent: Last Vital Signs Temp 98.1 F 09/24/17 07:24 Pulse 72 09/24/17 07:24 Resp 16 09/24/17 07:24 BP 135/67 09/24/17 07:24 Pulse Ox 95 09/24/17 07:24 Orthostatic Blood Pressure [ 130/48 lying] Orthostatic Blood Pressure [ 133/56 Standing] Orthostatic Blood Pressure [ 138/60 Sitting] Weight - Most Recent: 176 lb I&O - Last 24 Hours: Intake & Output 09/23/17 09/24/17 09/24/17 22:59 06:59 14:59 Intake Total 120 740 Output Total 106 427 8526 Balance -180 -650 -360 Lab Results Last 24 Hours: Laboratory Results - last 24 hr 09/23/17 09/23/17 09/23/17 Range/Units 05:00 05:00 05:00 WBC (4.5-11.0) K/uL RBC (4.30-5.90) M/uL Hgb (12.0-15.0) g/dL Hct (40.0-54.0) % MCV (80-98) fL MCH (27-31) pg MCHC (32-36) % Plt Count (150-400) K/uL Add Manual Diff Neutrophils % (Manual) (36-66) % Band Neutrophils % (5-11) % Lymphocytes % (Manual) (24-44) % Monocytes % (Manual) (2-6) % Eosinophils % (Manual) (2-4) % Percent Retic 2.2 H (0.5-1.5) % Sodium (140-148) mmol/L Potassium (3.6-5.2) mmol/L Chloride (100-108) mmol/L Carbon Dioxide (21-32) mmol/L Anion Gap (5.0-14.0) mmol/L BUN (7-18) mg/dL Creatinine (0.8-1.3) mg/dL Est Cr Clr Drug Dosing mL/min Estimated GFR (MDRD) (>60) Glucose (74-106) mg/dL Calcium (8.5-10.1) mg/dL Iron 35 L (65-175) ug/dL TIBC 214 L (250-450) ug/dl % Saturation 16 L (20-55) % Lactate Dehydrogenase 247 H (85-227) U/L Vitamin B12 399 (193-986) pg/ml Folate > 20.0 (8.6-58.9) ng/ml 09/24/17 09/24/17 Range/Units 04:52 04:52 WBC 5.2 (4.5-11.0) K/uL RBC 3.78 L (4.30-5.90) M/uL Hgb 10.4 L (12.0-15.0) g/dL Hct 32.6 L (40.0-54.0) % MCV 86 (80-98) fL MCH 28 (27-31) pg MCHC 32 (32-36) % Plt Count 137 L (150-400) K/uL Add Manual Diff Yes Neutrophils % (Manual) 57 (36-66) % Band Neutrophils % 3 L (5-11) % Lymphocytes % (Manual) 24 (24-44) % Monocytes % (Manual) 13 H (2-6) % Eosinophils % (Manual) 3 (2-4) % Percent Retic (0.5-1.5) % Sodium 141 (140-148) mmol/L Potassium 4.4 (3.6-5.2) mmol/L Chloride 111 H (100-108) mmol/L Carbon Dioxide 23 (21-32) mmol/L Anion Gap 11.4 (5.0-14.0) mmol/L BUN 28 H (7-18) mg/dL Creatinine 1.7 H (0.8-1.3) mg/dL Est Cr Clr Drug Dosing 36.38 mL/min Estimated GFR (MDRD) 39 L (>60) Glucose 84 (74-106) mg/dL Calcium 8.6 (8.5-10.1) mg/dL Iron (65-175) ug/dL TIBC (250-450) ug/dl % Saturation (20-55) % Lactate Dehydrogenase (85-227) U/L Vitamin B12 (193-986) pg/ml Folate (8.6-58.9) ng/ml Derek Results Last 24 Hours: Microbiology 09/22/17 13:55 Aerobic Blood Culture - Preliminary Blood - Arm, Left NO GROWTH AFTER 1 DAY Anaerobic Blood Culture - Preliminary NO GROWTH AFTER 1 DAY 09/22/17 13:50 Aerobic Blood Culture - Preliminary Blood - Arm, Left NO GROWTH AFTER 1 DAY Anaerobic Blood Culture - Preliminary NO GROWTH AFTER 1 DAY Med Orders - Current: Current Medications Acetaminophen (Tylenol) 650 mg PO Q4H PRN PRN Reason: Pain (Mild 1-3)/fever Last Admin: 09/23/17 21:14 Dose: 650 mg Albuterol (Ventolin Hfa) 0 gm INH QID PRN PRN Reason: Cough Albuterol (Proventil Neb Soln) 2.5 mg NEB Q4H PRN PRN Reason: Shortness Of Breath/wheezing Allopurinol (Zyloprim) 100 mg PO DAILY [facility] Last Admin: 09/24/17 08:10 Dose: 100 mg Aspirin (Ecotrin) 325 mg PO DAILY [facility] Last Admin: 09/24/17 08:11 Dose: 325 mg Benzonatate (Tessalon Perles) 200 mg PO TID PRN PRN Reason: Cough Dextrose (Glutose 15) 15 gm PO ASDIRECTED PRN PRN Reason: Hypoglycemia Dextrose/Water (Dextrose 50% In Water) 50 ml IV ASDIRECTED PRN PRN Reason: Hypoglycemia Enoxaparin Sodium (Lovenox) 40 mg SUBCUT Q24H [facility] Last Admin: 09/23/17 14:29 Dose: 40 mg Finasteride (Proscar) 5 mg PO DAILY [facility] Last Admin: 09/24/17 08:11 Dose: 5 mg Ferric Sodium Gluconate Complex 250 mg/ Sodium Chloride 120 mls @ 50 mls/hr IV ONETIME ONE Stop: 09/24/17 11:23 Last Admin: 09/24/17 09:20 Dose: 50 mls/hr Insulin Aspart (Novolog) 0 unit SUBCUT QIDACANDBED [facility] PRN Reason: Protocol Last Admin: 09/24/17 08:07 Dose: Not Given Insulin Detemir (Levemir) 24 unit SUBCUT DAILY [facility] Last Admin: 09/24/17 08:11 Dose: 24 units Magnesium Hydroxide (Milk Of Magnesia) 30 ml PO Q12H PRN PRN Reason: Constipation Ondansetron HCl (Zofran) 4 mg IV Q4H PRN PRN Reason: Nausea/Vomiting Oxycodone HCl (Oxycodone) 5 mg PO Q4H PRN PRN Reason: Pain (moderate 4-6) Last Admin: 09/23/17 09:13 Dose: 5 mg Pantoprazole Sodium (Protonix) 40 mg PO ACBREAKFAST [facility] Last Admin: 09/24/17 08:11 Dose: 40 mg Polyethylene Glycol (Miralax) 17 gm PO DAILY PRN PRN Reason: Constipation Polysaccharide Iron Complex (Ferrex 150) 150 mg PO BID [facility] Last Admin: 09/24/17 08:10 Dose: 150 mg Ranitidine HCl (Zantac) 150 mg PO BID [facility] Last Admin: 09/24/17 08:10 Dose: 150 mg Senna/Docusate Sodium (Senna Plus) 1 tab PO BID PRN PRN Reason: Constipation Sodium Chloride (Saline Flush) 10 ml FLUSH ASDIRECTED PRN PRN Reason: Keep Vein Open Tamsulosin HCl (Flomax) 0.4 mg PO DAILY [facility] Last Admin: 09/24/17 08:11 Dose: 0.4 mg Topiramate (Topamax) 50 mg PO BID [facility] Last Admin: 09/24/17 08:11 Dose: 50 mg Discontinued Medications Albuterol/Ipratropium (Duoneb 3.0-0.5 Mg/3 Ml) 3 ml NEB QIDRT [facility] Enoxaparin Sodium (Lovenox) 30 mg SUBCUT Q24H [facility] Last Admin: 09/22/17 15:02 Dose: 30 mg Sodium Chloride (Normal Saline) 1,000 mls @ 250 mls/hr IV ASDIRECTED [facility] Last Admin: 09/22/17 12:47 Dose: 250 mls/hr Lactated Ringer's (Ringers, Lactated) 1,000 mls @ 125 mls/hr IV ASDIRECTED [facility] Last Admin: 09/23/17 07:04 Dose: 125 mls/hr Lactated Ringer's (Ringers, Lactated) 1,000 mls @ 250 mls/hr IV ASDIRECTED ELO Stop: 09/22/17 20:00 Last Admin: 09/22/17 14:36 Dose: 250 mls/hr Ferric Sodium Gluconate Complex 250 mg/ Sodium Chloride 120 mls @ 50 mls/hr IV ONETIME ONE Stop: 09/23/17 13:23 Last Admin: 09/23/17 12:15 Dose: 50 mls/hr - Exam Quality Assessment: DVT Prophylaxis General: Alert, Oriented, Cooperative, Mild Distress Lungs: Normal Respiratory Effort, Crackles. No: Rhonchi, Wheezing Cardiovascular: Regular Rate, Regular Rhythm, No Murmurs GI/Abdominal Exam: Soft, Non-Tender, No Organomegaly, No Distention Extremities: Non-Tender, No Pedal Edema Skin: Warm, Dry, Intact - Problem List Review Problem List Initiated/Reviewed/Updated: Yes - My Orders Last 24 Hours: My Active Orders 09/23/17 09:00 Allopurinol [Zyloprim] 100 mg PO DAILY Aspirin [Ecotrin] 325 mg PO DAILY Finasteride [Proscar] 5 mg PO DAILY Insulin Detemir [Levemir] 24 unit SUBCUT DAILY Tamsulosin [Flomax] 0.4 mg PO DAILY 09/23/17 09:55 Convert IV to Saline Lock [OM.PC] Routine 09/23/17 10:03 Cardiac Monitoring Discontinue [RC] DAILY 09/23/17 15:00 Enoxaparin [Lovenox] 40 mg SUBCUT Q24H 09/23/17 17:28 Cooling Warming Measures [RC] ASDIRECTED Heat Therapy [OM.PC] Routine 09/23/17 21:00 Iron Polysaccharides Complex [Ferrex 150] 150 mg PO BID 09/23/17 22:26 RT Acapella [RESPCARE] Routine 09/24/17 09:00 Sodium Ferric Gluconate Cmplex [Ferrlecit IV] 250 mg Sodium Chloride 0.9% [ Normal Saline] 100 ml IV ONETIME 09/24/17 11:30 GLUCOSE POC LAB TO COLLECT [POC] QIDACANDBED 09/24/17 16:30 GLUCOSE POC LAB TO COLLECT [POC] QIDACANDBED 09/24/17 21:00 GLUCOSE POC LAB TO COLLECT [POC] QIDACANDBED 09/25/17 07:30 GLUCOSE POC LAB TO COLLECT [POC] QIDACANDBED 09/25/17 11:30 GLUCOSE POC LAB TO COLLECT [POC] QIDACANDBED 09/25/17 16:30 GLUCOSE POC LAB TO COLLECT [POC] QIDACANDBED 09/25/17 21:00 GLUCOSE POC LAB TO COLLECT [POC] QIDACANDBED 09/26/17 07:30 GLUCOSE POC LAB TO COLLECT [POC] QIDACANDBED 09/26/17 11:30 GLUCOSE POC LAB TO COLLECT [POC] QIDACANDBED 09/26/17 16:30 GLUCOSE POC LAB TO COLLECT [POC] QIDACANDBED 09/26/17 21:00 GLUCOSE POC LAB TO COLLECT [POC] QIDACANDBED 09/27/17 07:30 GLUCOSE POC LAB TO COLLECT [POC] QIDACANDBED 09/27/17 11:30 GLUCOSE POC LAB TO COLLECT [POC] QIDACANDBED 09/27/17 16:30 GLUCOSE POC LAB TO COLLECT [POC] QIDACANDBED 09/27/17 21:00 GLUCOSE POC LAB TO COLLECT [POC] QIDACANDBED - Plan Plan:: ASSESSMENT AND PLAN ORTHOSTATIC HYPOTENSION AND WEAKNESS- resolved -Saline lock IV PULMONARY FIBROSIS-chronic findings noted on CT scan, no evidence of underlying infection -Supplemental oxygen as needed TYPE 2 DIABETES MELLITUS -Continue usual dose of long-acting insulin -Low-dose sliding scale NovoLog -4 times a day glucometers CHRONIC KIDNEY DISEASE STAGE III -Closely monitor urine output and renal function UPPER BACK pain improved over the past 24 hours but continues to experience limitation in mobility related to pain with movement. CT scan of the thoracic spine showed no significant bony abnormalities to explain the pain, likely muscular in nature -Heating pad as needed -Pain medication as needed MAINTENANCE ISSUES -DVT prophylaxis; Lovenox 30 mg subcutaneous daily -GI prophylaxis; continue outpatient PPI therapy -Bonilla catheter; not indicated -Nutrition; consistent carb diet -Nicotine dependence; not required CODE STATUS-FULL CODE ADMISSION STATUS-patient will be admitted to inpatient status, expect at least a 2 night hospital stay for evaluation and management of problems as outlined above. At the time of this admission I do not reasonably expected evaluation and management of this problem will require more than a 96 hour hospital stay. DISPOSITION-anticipate discharge to home after the hospital stay. PRIMARY CARE PROVIDER-Dr. Saini
[2017-09-24] MEDS: Enoxaparin 40 MG/0.4 ML Syringe SUBCUT SCH (14:06)
[2017-09-25] MEDS: Acetaminophen 325 MG Tab PO PRN ×2 (07:14→15:43)
[2017-09-25] MEDS: Pantoprazole 40 MG Tab.CR PO SCH (07:22)
[2017-09-25] MEDS: Insulin Aspart 100 Units/ML 3 ML Pen SUBCUT SCH ×4 (07:26→21:35)
[2017-09-25] MEDS: Finasteride 5 MG Tab PO SCH (09:30)
[2017-09-25] MEDS: Allopurinol 100 MG Tab PO SCH (09:31)
[2017-09-25] MEDS: Tamsulosin 0.4 MG Cap.ER PO SCH (09:31)
[2017-09-25] MEDS: Aspirin 325 MG Tab.EC PO SCH (09:31)
[2017-09-25] MEDS: Insulin Detemir 100 Units/ML 3 ML Pen SUBCUT SCH (09:44)
[2017-09-25] MEDS: Iron Polysaccharides Complex 150 MG Cap PO SCH ×2 (10:40→21:36)
[2017-09-25] MEDS: Topiramate 25 MG Tab PO SCH ×2 (10:40→21:36)
--- NOTE | 2017-09-25 11:24 | PCM.PN ---
- General Info Date of Service: 09/25/17 Subjective Update: Mr. Tarango has been hemodynamically stable and afebrile over the past 24 hours. Continues to feel somewhat weak and lightheaded when he is upright and ambulating. Does not currently feel that he would be safe at home, but at the same time is not overly interested in senior care placement. Denies significant shortness of breath or cough. - Review of Systems General: Reports: Weakness. Denies: Fever, Chills Pulmonary: Reports: No Symptoms Cardiovascular: Reports: Lightheadedness. Denies: Chest Pain, Palpitations, Dyspnea on Exertion, Orthopnea, PND, Edema Gastrointestinal: Reports: No Symptoms Neurological: Reports: No Symptoms - Patient Data Vitals - Most Recent: Last Vital Signs Temp 97.8 F 09/25/17 11:08 Pulse 93 09/25/17 11:08 Resp 18 09/25/17 11:08 BP 115/52 L 09/25/17 11:08 Pulse Ox 96 09/25/17 11:08 Orthostatic Blood Pressure [ 111/63 lying] Orthostatic Blood Pressure [ 105/62 Standing] Orthostatic Blood Pressure [ 119/59 Sitting] Weight - Most Recent: 174 lb 3.2 oz I&O - Last 24 Hours: Intake & Output 09/24/17 09/25/17 09/25/17 22:59 06:59 14:59 Intake Total 240 640 Output Total 500 650 700 Balance -260 -650 -60 Derek Results Last 24 Hours: Microbiology 09/22/17 13:55 Aerobic Blood Culture - Preliminary Blood - Arm, Left NO GROWTH AFTER 2 DAYS Anaerobic Blood Culture - Preliminary NO GROWTH AFTER 2 DAYS 09/22/17 13:50 Aerobic Blood Culture - Preliminary Blood - Arm, Left NO GROWTH AFTER 2 DAYS Anaerobic Blood Culture - Preliminary NO GROWTH AFTER 2 DAYS Med Orders - Current: Current Medications Acetaminophen (Tylenol) 650 mg PO Q4H PRN PRN Reason: Pain (Mild 1-3)/fever Last Admin: 09/25/17 07:14 Dose: 650 mg Albuterol (Ventolin Hfa) 0 gm INH QID PRN PRN Reason: Cough Albuterol (Proventil Neb Soln) 2.5 mg NEB Q4H PRN PRN Reason: Shortness Of Breath/wheezing Allopurinol (Zyloprim) 100 mg PO DAILY [facility] Last Admin: 09/25/17 09:31 Dose: 100 mg Aspirin (Ecotrin) 325 mg PO DAILY [facility] Last Admin: 09/25/17 09:31 Dose: 325 mg Benzonatate (Tessalon Perles) 200 mg PO TID PRN PRN Reason: Cough Dextrose (Glutose 15) 15 gm PO ASDIRECTED PRN PRN Reason: Hypoglycemia Dextrose/Water (Dextrose 50% In Water) 50 ml IV ASDIRECTED PRN PRN Reason: Hypoglycemia Enoxaparin Sodium (Lovenox) 40 mg SUBCUT Q24H [facility] Last Admin: 09/24/17 14:06 Dose: 40 mg Finasteride (Proscar) 5 mg PO DAILY [facility] Last Admin: 09/25/17 09:30 Dose: 5 mg Insulin Aspart (Novolog) 0 unit SUBCUT QIDACANDBED [facility] PRN Reason: Protocol Last Admin: 09/25/17 07:26 Dose: Not Given Insulin Detemir (Levemir) 24 unit SUBCUT DAILY [facility] Last Admin: 09/25/17 09:44 Dose: 24 units Magnesium Hydroxide (Milk Of Magnesia) 30 ml PO Q12H PRN PRN Reason: Constipation Ondansetron HCl (Zofran) 4 mg IV Q4H PRN PRN Reason: Nausea/Vomiting Oxycodone HCl (Oxycodone) 5 mg PO Q4H PRN PRN Reason: Pain (moderate 4-6) Last Admin: 09/23/17 09:13 Dose: 5 mg Pantoprazole Sodium (Protonix) 40 mg PO ACBREAKFAST [facility] Last Admin: 09/25/17 07:22 Dose: 40 mg Polyethylene Glycol (Miralax) 17 gm PO DAILY PRN PRN Reason: Constipation Polysaccharide Iron Complex (Ferrex 150) 150 mg PO BID [facility] Last Admin: 09/25/17 10:40 Dose: 150 mg Ranitidine HCl (Zantac) 150 mg PO BID [facility] Last Admin: 09/25/17 09:30 Dose: 150 mg Senna/Docusate Sodium (Senna Plus) 1 tab PO BID PRN PRN Reason: Constipation Sodium Chloride (Saline Flush) 10 ml FLUSH ASDIRECTED PRN PRN Reason: Keep Vein Open Tamsulosin HCl (Flomax) 0.4 mg PO DAILY [facility] Last Admin: 09/25/17 09:31 Dose: 0.4 mg Topiramate (Topamax) 50 mg PO BID [facility] Last Admin: 09/25/17 10:40 Dose: 50 mg Discontinued Medications Albuterol/Ipratropium (Duoneb 3.0-0.5 Mg/3 Ml) 3 ml NEB QIDRT [facility] Enoxaparin Sodium (Lovenox) 30 mg SUBCUT Q24H [facility] Last Admin: 09/22/17 15:02 Dose: 30 mg Sodium Chloride (Normal Saline) 1,000 mls @ 250 mls/hr IV ASDIRECTED [facility] Last Admin: 09/22/17 12:47 Dose: 250 mls/hr Lactated Ringer's (Ringers, Lactated) 1,000 mls @ 125 mls/hr IV ASDIRECTED [facility] Last Admin: 09/23/17 07:04 Dose: 125 mls/hr Lactated Ringer's (Ringers, Lactated) 1,000 mls @ 250 mls/hr IV ASDIRECTED [facility] Stop: 09/22/17 20:00 Last Admin: 09/22/17 14:36 Dose: 250 mls/hr Ferric Sodium Gluconate Complex 250 mg/ Sodium Chloride 120 mls @ 50 mls/hr IV ONETIME ONE Stop: 09/23/17 13:23 Last Admin: 09/23/17 12:15 Dose: 50 mls/hr Ferric Sodium Gluconate Complex 250 mg/ Sodium Chloride 120 mls @ 50 mls/hr IV ONETIME ONE Stop: 09/24/17 11:23 Last Admin: 09/24/17 09:20 Dose: 50 mls/hr - Exam Quality Assessment: DVT Prophylaxis. No: Supplemental Oxygen General: Alert, Oriented, Cooperative, Mild Distress Lungs: Normal Respiratory Effort, Crackles. No: Rhonchi, Rub, Stridor, Wheezing Cardiovascular: Regular Rate, Regular Rhythm, No Murmurs GI/Abdominal Exam: Soft, Non-Tender, No Organomegaly, No Distention Extremities: Non-Tender, No Pedal Edema Skin: Warm, Dry, Intact - Problem List Review Problem List Initiated/Reviewed/Updated: Yes - My Orders Last 24 Hours: My Active Orders 09/25/17 16:30 GLUCOSE POC LAB TO COLLECT [POC] QIDACANDBED 09/25/17 21:00 GLUCOSE POC LAB TO COLLECT [POC] QIDACANDBED 09/26/17 07:30 GLUCOSE POC LAB TO COLLECT [POC] QIDACANDBED 09/26/17 11:30 GLUCOSE POC LAB TO COLLECT [POC] QIDACANDBED 09/26/17 16:30 GLUCOSE POC LAB TO COLLECT [POC] QIDACANDBED 09/26/17 21:00 GLUCOSE POC LAB TO COLLECT [POC] QIDACANDBED 09/27/17 07:30 GLUCOSE POC LAB TO COLLECT [POC] QIDACANDBED 09/27/17 11:30 GLUCOSE POC LAB TO COLLECT [POC] QIDACANDBED 09/27/17 16:30 GLUCOSE POC LAB TO COLLECT [POC] QIDACANDBED 09/27/17 21:00 GLUCOSE POC LAB TO COLLECT [POC] QIDACANDBED - Plan Plan:: ASSESSMENT AND PLAN ORTHOSTATIC HYPOTENSION AND WEAKNESS- feels well at rest and while sitting in the chair, continues to feel weak and lightheaded with ambulation. Orthostatic vital signs obtained this morning showed no significant drop from baseline. Vital signs have been stable and there is been no significant evidence of cardiac dysrhythmias. -Saline lock IV PULMONARY FIBROSIS-chronic findings noted on CT scan, no evidence of underlying infection. Respiratory status has been stable, not requiring supplemental oxygen TYPE 2 DIABETES MELLITUS -Continue usual dose of long-acting insulin -Low-dose sliding scale NovoLog -4 times a day glucometers CHRONIC KIDNEY DISEASE STAGE III -Closely monitor urine output and renal function UPPER BACK pain improved over the past [address] scan of the thoracic spine showed no significant bony abnormalities to explain the pain, likely muscular in nature. -Heating pad as needed -Pain medication as needed MAINTENANCE ISSUES -DVT prophylaxis; Lovenox 30 mg subcutaneous daily -GI prophylaxis; continue outpatient PPI therapy -Bonilla catheter; not indicated -Nutrition; consistent carb diet -Nicotine dependence; not required CODE STATUS-FULL CODE ADMISSION STATUS-patient will be admitted to inpatient status, expect at least a 2 night hospital stay for evaluation and management of problems as outlined above. At the time of this admission I do not reasonably expected evaluation and management of this problem will require more than a 96 hour hospital stay. DISPOSITION-anticipate discharge to home versus senior care tomorrow. PRIMARY CARE PROVIDER-Dr. Saini
[2017-09-25] MEDS: Enoxaparin 40 MG/0.4 ML Syringe SUBCUT SCH (15:39)
[2017-09-26] MEDS: Insulin Aspart 100 Units/ML 3 ML Pen SUBCUT SCH ×4 (07:57→21:15)
[2017-09-26] MEDS: Pantoprazole 40 MG Tab.CR PO SCH (08:01)
[2017-09-26] MEDS: Aspirin 325 MG Tab.EC PO SCH (08:02)
[2017-09-26] MEDS: Tamsulosin 0.4 MG Cap.ER PO SCH (08:02)
[2017-09-26] MEDS: Allopurinol 100 MG Tab PO SCH (08:02)
[2017-09-26] MEDS: Iron Polysaccharides Complex 150 MG Cap PO SCH ×2 (08:02→21:16)
[2017-09-26] MEDS: Topiramate 25 MG Tab PO SCH ×2 (08:02→21:15)
[2017-09-26] MEDS: Finasteride 5 MG Tab PO SCH (08:02)
[2017-09-26] MEDS: Insulin Detemir 100 Units/ML 3 ML Pen SUBCUT SCH (08:02)
[2017-09-26] MEDS: Trolamine Salicylate/Aloe Vera 10% Crm 85 GM Tube TOP PRN ×2 (11:42→21:14)
--- NOTE | 2017-09-26 14:06 | PCM.PN ---
- General Info Date of Service: 09/26/17 Functional Status: Reports: Pain Controlled, Tolerating Diet, Ambulating - Review of Systems General: Reports: Weakness Cardiovascular: Reports: Dyspnea on Exertion Systems Review Comment:: No acute events overnight. Still having right upper back and lower neck pain though it's a little better after a massage yesterday. Feels weak and a little unsteady on his feet but has been able to work with physical therapy and ambulate decent distances. He has not had any fevers. He has not been hypoxic. He does get short of breath with activity. - Patient Data Vitals - Most Recent: Last Vital Signs Temp 36.9 C 09/26/17 13:02 Pulse 109 H 09/26/17 13:02 Resp 18 09/26/17 13:02 BP 117/54 L 09/26/17 13:02 Pulse Ox 96 09/26/17 13:02 Orthostatic Blood Pressure [ 111/63 lying] Orthostatic Blood Pressure [ 105/62 Standing] Orthostatic Blood Pressure [ 119/59 Sitting] Weight - Most Recent: 78.925 kg I&O - Last 24 Hours: Intake & Output 09/25/17 09/26/17 09/26/17 22:59 06:59 14:59 Intake Total 420 500 360 Output Total 650 350 Balance 420 -150 10 Lab Results Last 24 Hours: Laboratory Results - last 24 hr 09/23/17 Range/Units 05:00 Total Counted 100 Segmented Neutrophils 50 (38-70) % Band Neutrophils 12 H (0-8) % Lymphocytes 21 (21-49) % Monocytes 8 (3-11) % Eosinophils 3 (0-7) % Basophils 2 (0-2) % Diff Path Review See below WBC Morphology Normal Variant Lymphocytes 4 (0-6) % Platelet Morphology Decreased RBC Morphology Normal Ref Lab Pathologist See below Derek Results Last 24 Hours: Microbiology 09/22/17 13:55 Aerobic Blood Culture - Preliminary Blood - Arm, Left NO GROWTH AFTER 4 DAYS Anaerobic Blood Culture - Preliminary NO GROWTH AFTER 4 DAYS 09/22/17 13:50 Aerobic Blood Culture - Preliminary Blood - Arm, Left NO GROWTH AFTER 4 DAYS Anaerobic Blood Culture - Preliminary NO GROWTH AFTER 4 DAYS Med Orders - Current: Current Medications Acetaminophen (Tylenol) 650 mg PO Q4H PRN PRN Reason: Pain (Mild 1-3)/fever Last Admin: 09/25/17 15:43 Dose: 650 mg Albuterol (Ventolin Hfa) 0 gm INH QID PRN PRN Reason: Cough Albuterol (Proventil Neb Soln) 2.5 mg NEB Q4H PRN PRN Reason: Shortness Of Breath/wheezing Allopurinol (Zyloprim) 100 mg PO DAILY [facility] Last Admin: 09/26/17 08:02 Dose: 100 mg Aspirin (Ecotrin) 325 mg PO DAILY [facility] Last Admin: 09/26/17 08:02 Dose: 325 mg Benzonatate (Tessalon Perles) 200 mg PO TID PRN PRN Reason: Cough Dextrose (Glutose 15) 15 gm PO ASDIRECTED PRN PRN Reason: Hypoglycemia Dextrose/Water (Dextrose 50% In Water) 50 ml IV ASDIRECTED PRN PRN Reason: Hypoglycemia Enoxaparin Sodium (Lovenox) 40 mg SUBCUT Q24H [facility] Last Admin: 09/25/17 15:39 Dose: 40 mg Finasteride (Proscar) 5 mg PO DAILY [facility] Last Admin: 09/26/17 08:02 Dose: 5 mg Insulin Aspart (Novolog) 0 unit SUBCUT QIDACANDBED [facility] PRN Reason: Protocol Last Admin: 09/26/17 11:39 Dose: 2 units Insulin Detemir (Levemir) 24 unit SUBCUT DAILY [facility] Last Admin: 09/26/17 08:02 Dose: 24 units Magnesium Hydroxide (Milk Of Magnesia) 30 ml PO Q12H PRN PRN Reason: Constipation Ondansetron HCl (Zofran) 4 mg IV Q4H PRN PRN Reason: Nausea/Vomiting Oxycodone HCl (Oxycodone) 5 mg PO Q4H PRN PRN Reason: Pain (moderate 4-6) Last Admin: 09/23/17 09:13 Dose: 5 mg Pantoprazole Sodium (Protonix) 40 mg PO ACBREAKFAST [facility] Last Admin: 09/26/17 08:01 Dose: 40 mg Polyethylene Glycol (Miralax) 17 gm PO DAILY PRN PRN Reason: Constipation Polysaccharide Iron Complex (Ferrex 150) 150 mg PO BID [facility] Last Admin: 09/26/17 08:02 Dose: 150 mg Ranitidine HCl (Zantac) 150 mg PO BID [facility] Last Admin: 09/26/17 08:02 Dose: 150 mg Senna/Docusate Sodium (Senna Plus) 1 tab PO BID PRN PRN Reason: Constipation Sodium Chloride (Saline Flush) 10 ml FLUSH ASDIRECTED PRN PRN Reason: Keep Vein Open Tamsulosin HCl (Flomax) 0.4 mg PO DAILY [facility] Last Admin: 09/26/17 08:02 Dose: 0.4 mg Topiramate (Topamax) 50 mg PO BID [facility] Last Admin: 09/26/17 08:02 Dose: 50 mg Trolamine Salicylate (Aspercreme 10%) 0 gm TOP Q1H PRN PRN Reason: back pain Last Admin: 09/26/17 11:42 Dose: 1 applic Discontinued Medications Albuterol/Ipratropium (Duoneb 3.0-0.5 Mg/3 Ml) 3 ml NEB QIDRT [facility] Enoxaparin Sodium (Lovenox) 30 mg SUBCUT Q24H [facility] Last Admin: 09/22/17 15:02 Dose: 30 mg Sodium Chloride (Normal Saline) 1,000 mls @ 250 mls/hr IV ASDIRECTED [facility] Last Admin: 09/22/17 12:47 Dose: 250 mls/hr Lactated Ringer's (Ringers, Lactated) 1,000 mls @ 125 mls/hr IV ASDIRECTED [facility] Last Admin: 09/23/17 07:04 Dose: 125 mls/hr Lactated Ringer's (Ringers, Lactated) 1,000 mls @ 250 mls/hr IV ASDIRECTED [facility] Stop: 09/22/17 20:00 Last Admin: 09/22/17 14:36 Dose: 250 mls/hr Ferric Sodium Gluconate Complex 250 mg/ Sodium Chloride 120 mls @ 50 mls/hr IV ONETIME ONE Stop: 09/23/17 13:23 Last Admin: 09/23/17 12:15 Dose: 50 mls/hr Ferric Sodium Gluconate Complex 250 mg/ Sodium Chloride 120 mls @ 50 mls/hr IV ONETIME ONE Stop: 09/24/17 11:23 Last Admin: 09/24/17 09:20 Dose: 50 mls/hr - Exam Quality Assessment: No: Supplemental Oxygen General: Alert, Oriented, Cooperative, No Acute Distress Neck: Supple Lungs: Normal Respiratory Effort, Rales (both bases) Cardiovascular: Regular Rate, Regular Rhythm GI/Abdominal Exam: No Distention Extremities: No Pedal Edema Skin: Warm, Dry Psy/Mental Status: Alert, Normal Affect - Problem List Review Problem List Initiated/Reviewed/Updated: Yes - My Orders Last 24 Hours: My Active Orders 09/26/17 10:09 Trolamine Salicylate/Aloe Vera [Aspercreme 10%] 0 gm TOP Q1H PRN - Plan Plan:: ASSESSMENT AND PLAN ORTHOSTATIC HYPOTENSION AND WEAKNESS - vital signs have been stable and no orthostatic change noted yesterday. Still feels weak and unsteady on his feet. Has been working with physical therapy. He does not feel safe at home. -Saline lock IV PULMONARY FIBROSIS - chronic findings noted on CT scan, no evidence of underlying infection. Respiratory status has been stable, not requiring supplemental oxygen but he is symptomatic with activity. TYPE 2 DIABETES MELLITUS - sugars acceptable. -Continue usual dose of long-acting insulin -Low-dose sliding scale NovoLog -4 times a day glucometers CHRONIC KIDNEY DISEASE STAGE III - kidney function stable. -Closely monitor urine output and renal function UPPER BACK - pain improved over the past [address] scan of the thoracic spine showed no significant bony abnormalities to explain the pain, likely muscular in nature. -Heating pad as needed -Trial of analgesic balm -Pain medication as needed MAINTENANCE ISSUES -DVT prophylaxis; Lovenox 30 mg subcutaneous daily -GI prophylaxis; continue outpatient PPI therapy -Bonilla catheter; not indicated -Nutrition; consistent carb diet DISPOSITION - patient is safe for discharge at this time but we do not have a safe discharge plan today. He does not feel safe at home and is requesting to go to the intermediate. A bed will be available locally tomorrow morning and he will be discharged at that time. Oscar Sahu M.D.
[2017-09-26] MEDS: Enoxaparin 40 MG/0.4 ML Syringe SUBCUT SCH (15:38)
[2017-09-27] MEDS: Trolamine Salicylate/Aloe Vera 10% Crm 85 GM Tube TOP PRN ×3 (00:44→08:49)
[2017-09-27] MEDS: Insulin Aspart 100 Units/ML 3 ML Pen SUBCUT SCH ×2 (07:47→11:58)
[2017-09-27] MEDS: Pantoprazole 40 MG Tab.CR PO SCH (07:51)
[2017-09-27] MEDS: Aspirin 325 MG Tab.EC PO SCH (08:52)
[2017-09-27] MEDS: Topiramate 25 MG Tab PO SCH (08:52)
[2017-09-27] MEDS: Allopurinol 100 MG Tab PO SCH (08:54)
[2017-09-27] MEDS: Finasteride 5 MG Tab PO SCH (08:54)
[2017-09-27] MEDS: Iron Polysaccharides Complex 150 MG Cap PO SCH (08:54)
[2017-09-27] MEDS: Acetaminophen 325 MG Tab PO PRN (09:06)
[2017-09-27] MEDS: Tamsulosin 0.4 MG Cap.ER PO SCH (09:12)
--- NOTE | 2017-09-27 12:10 | PCM.DCSUM1 ---
Discharge Summary - Hospital Course Brief History: 81-year-old male with insulin-dependent diabetes with neurologic complications, stage III chronic kidney disease and essential hypertension who presented with progressive generalized weakness and orthostatic dizziness. He was admitted for management of weakness, orthostatic hypotension and further evaluation of probable pulmonary fibrosis. - Discharge Data Discharge Date: 09/27/17 Discharge Disposition: DC/Tfer to SNF 03 Condition: Fair - Discharge Diagnosis/Problem(s) (1) Orthostatic hypotension SNOMED Code(s): 20231501 ICD Code: I95.1 - ORTHOSTATIC HYPOTENSION Status: Acute Current Visit: Yes (2) Generalized weakness SNOMED Code(s): 21176167 ICD Code: R53.1 - WEAKNESS Status: Acute Current Visit: Yes (3) Benign essential hypertension SNOMED Code(s): 7107080 ICD Code: I10 - ESSENTIAL (PRIMARY) HYPERTENSION Status: Chronic Current Visit: No (4) Type 2 diabetes mellitus with neurological manifestation SNOMED Code(s): 88977820 ICD Code: E11.49 - TYPE 2 DIABETES [facility] DIABETIC NEUROLOGICAL COMPLICATION Status: Chronic Current Visit: No (5) CKD (chronic kidney disease), stage III SNOMED Code(s): 946521142 ICD Code: N18.3 - CHRONIC KIDNEY DISEASE, STAGE 3 (MODERATE) Status: Chronic Current Visit: No (6) Muscle strain of right upper back SNOMED Code(s): 957297978 ICD Code: S29.012A - STRAIN OF MUSCLE AND TENDON OF BACK WALL OF THORAX, INIT Status: Acute Current Visit: Yes Qualifiers: Encounter type: initial encounter Qualified Code(s): S29.012A - Strain of muscle and tendon of back wall of thorax, initial encounter (7) Pulmonary fibrosis SNOMED Code(s): 89724143 ICD Code: J84.10 - PULMONARY FIBROSIS, UNSPECIFIED Status: Chronic Current Visit: Yes - Patient Summary/Data Consults: Consultations 09/22/17 13:36 PT Evaluation and Treatment [CONS] Routine Please Evaluate and Treat. PT Reason for Consult: weakness This query below is only for informational purposes and is not editable. Hospital Course: Moiz presented to the emergency room with several days of progressive generalized weakness and orthostatic hypotension. Workup in the emergency room but did confirm orthostatic hypotension with significant drop in blood pressure upon standing. He had a slight worsening of his renal function from baseline and there was concern for pulmonary fibrosis based on chest x-ray. He was admitted to the hospital for further management and additional workup. For the orthostatic hypotension his lisinopril/hydrochlorothiazide was discontinued and over the next couple of days he had a normalization of his orthostatic vital signs. His dizziness did improve and his strength improved as his orthostatic dizziness improved. His blood pressures have remained stable without the lisinopril/hydrochlorothiazide combination and he has not needed additional antihypertensive management. His kidney function was slightly down from baseline at the time of presentation but has stabilized with a creatinine of 1.6 -1.7 after the improvement in his orthostatic hypotension. He has been able to get out of bed on his own and has been doing some ambulating but still continues to feel unsteady on his feet and is nervous about being home alone. I do recommend discharge to the custodial for subacute rehabilitation with physical and occupational therapy. He has had some recent difficulties with shortness of breath and chest CT suggested possible pulmonary fibrosis versus usual interstitial pneumonitis. he has not been hypoxic. He does get short of breath with activity but has not been hypoxic with activity either. He has not had any fevers. He has not had much of a cough. I don't believe any additional management is needed at this time but he does have his inhaler to use as needed if he becomes more short of breath. His diabetes has been well-controlled using just his long-acting insulin. he also had some difficulty with mid and upper back pain during the hospital stay. Given the severity of his pain a CT was performed but did not show any bony abnormality. His examination has been very consistent with muscular spasm and muscular upper back and lower neck pain. He has responded fairly well to massage and analgesic balm. He does continue to have pain but it has been improving each day. - Patient Instructions Diet: Diabetic Diet Activity: As Tolerated Showering/Bathing: May Shower Notify Provider of: Fever, Increased Pain, Nausea and/or Vomiting Other/Special Instructions: 1. You were in the hospital for management of generalized weakness and muscular mid and upper back pain. Your strength has been improving with physical therapy. Your back pain has been improving with a variety of different treatments. We are planning a discharge to the custodial for subacute rehabilitation before you return home. At the time of presentation you also had difficulty with orthostatic hypotension and this has resolved after your blood pressure medication was discontinued. I recommend that we discontinue the lisinopril/hydrochlorothiazide completely. We also discovered that you have pulmonary fibrosis and I have included some information regarding this medical condition. 2. Continue your other medications as previously prescribed. 3. Code status - full code. 4. Blood glucose monitoring - check blood sugars 4 times a day with meals and at bedtime. 5. Referral to physical and occupational therapy for strengthening in the setting of generalized weakness. 6. Seek medical attention if you develop fever greater than 101, have sudden worsening of your shortness of breath or if you develop profound weakness. - Discharge Plan Prescriptions/Med Rec: Acetaminophen [Tylenol] 650 mg PO Q4H PRN #100 tablet PRN Reason: Pain (Mild 1-3)/fever Trolamine Salicylate/Aloe Vera [Aspercreme 10%] 1 gm TOP Q2H PRN #1 tube PRN Reason: back pain Home Medications: Home Meds Albuterol [Ventolin HFA] 2 puff INH QID PRN 08/29/16 [History] Allopurinol [Zyloprim] 100 mg PO DAILY 08/29/16 [History] Benzonatate [Tessalon Perles] 200 mg PO TID PRN 08/29/16 [History] Insulin Detemir [Levemir Flextouch] 24 units SUBCUT BEDTIME 08/29/16 [History] Tamsulosin [Flomax] 0.4 mg PO BEDTIME 08/29/16 [History] Topiramate [Topamax] 50 mg PO BID 08/29/16 [History] Aspirin 325 mg PO DAILY 09/22/17 [History] Finasteride [Proscar] 5 mg PO DAILY 09/22/17 [History] Omeprazole 40 mg PO DAILY 09/22/17 [History] Ranitidine [Zantac] 150 mg PO BID 09/22/17 [History] Tadalafil [Cialis] 5 mg PO ASDIRECTED PRN 09/22/17 [History] Acetaminophen [Tylenol] 650 mg PO Q4H PRN #100 tablet 09/27/17 [Rx] Trolamine Salicylate/Aloe Vera [Aspercreme 10%] 1 gm TOP Q2H PRN #1 tube [Rx] Patient Handouts: Thoracic Strain, Pulmonary Fibrosis Referrals: Charles Saini MD [Primary Care Provider] - (f/u in 1-2 weeks - follow-up hospital stay for weakness, back pain and orthostatic hypotension) - Discharge Summary/Plan Comment DC Time >30 min.: Yes (45 - new custodial discharge) - Patient Data Vitals - Most Recent: Last Vital Signs Temp 37.1 C 09/27/17 11:45 Pulse 83 09/27/17 11:45 Resp 20 09/27/17 11:45 BP 132/58 L 09/27/17 11:45 Pulse Ox 94 L 09/27/17 11:45 Orthostatic Blood Pressure [ 111/63 lying] Orthostatic Blood Pressure [ 105/62 Standing] Orthostatic Blood Pressure [ 119/59 Sitting] Weight - Most Recent: 79.016 kg I&O - Last 24 hours: Intake & Output 09/26/17 09/27/17 09/27/17 22:59 06:59 14:59 Intake Total 120 400 Output Total 200 600 250 Balance -80 -200 -250 EDNA Results - Last 24 hrs: Microbiology 09/22/17 13:55 Aerobic Blood Culture - Preliminary Blood - Arm, Left NO GROWTH AFTER 4 DAYS Anaerobic Blood Culture - Preliminary NO GROWTH AFTER 4 DAYS 09/22/17 13:50 Aerobic Blood Culture - Preliminary Blood - Arm, Left NO GROWTH AFTER 4 DAYS Anaerobic Blood Culture - Preliminary NO GROWTH AFTER 4 DAYS Med Orders - Current: Current Medications Acetaminophen (Tylenol) 650 mg PO Q4H PRN PRN Reason: Pain (Mild 1-3)/fever Last Admin: 09/27/17 09:06 Dose: 650 mg Albuterol (Ventolin Hfa) 0 gm INH QID PRN PRN Reason: Cough Albuterol (Proventil Neb Soln) 2.5 mg NEB Q4H PRN PRN Reason: Shortness Of Breath/wheezing Allopurinol (Zyloprim) 100 mg PO DAILY [facility]LO Last Admin: 09/27/17 08:54 Dose: 100 mg Aspirin (Ecotrin) 325 mg PO DAILY ELO Last Admin: 09/27/17 08:52 Dose: 325 mg Benzonatate (Tessalon Perles) 200 mg PO TID PRN PRN Reason: Cough Dextrose (Glutose 15) 15 gm PO ASDIRECTED PRN PRN Reason: Hypoglycemia Dextrose/Water (Dextrose 50% In Water) 50 ml IV ASDIRECTED PRN PRN Reason: Hypoglycemia Enoxaparin Sodium (Lovenox) 40 mg SUBCUT Q24H [facility] Last Admin: 09/26/17 15:38 Dose: 40 mg Finasteride (Proscar) 5 mg PO DAILY [facility] Last Admin: 09/27/17 08:54 Dose: 5 mg Insulin Aspart (Novolog) 0 unit SUBCUT QIDACANDBED [facility] PRN Reason: Protocol Last Admin: 09/27/17 11:58 Dose: 1 units Insulin Detemir (Levemir) 24 unit SUBCUT BEDTIME [facility] Magnesium Hydroxide (Milk Of Magnesia) 30 ml PO Q12H PRN PRN Reason: Constipation Ondansetron HCl (Zofran) 4 mg IV Q4H PRN PRN Reason: Nausea/Vomiting Oxycodone HCl (Oxycodone) 5 mg PO Q4H PRN PRN Reason: Pain (moderate 4-6) Last Admin: 09/23/17 09:13 Dose: 5 mg Pantoprazole Sodium (Protonix) 40 mg PO ACBREAKFAST [facility] Last Admin: 09/27/17 07:51 Dose: 40 mg Polyethylene Glycol (Miralax) 17 gm PO DAILY PRN PRN Reason: Constipation Polysaccharide Iron Complex (Ferrex 150) 150 mg PO BID [facility] Last Admin: 09/27/17 08:54 Dose: 150 mg Ranitidine HCl (Zantac) 150 mg PO BID [facility] Last Admin: 09/27/17 08:52 Dose: 150 mg Senna/Docusate Sodium (Senna Plus) 1 tab PO BID PRN PRN Reason: Constipation Sodium Chloride (Saline Flush) 10 ml FLUSH ASDIRECTED PRN PRN Reason: Keep Vein Open Tamsulosin HCl (Flomax) 0.4 mg PO BEDTIME [facility] Topiramate (Topamax) 50 mg PO BID [facility] Last Admin: 09/27/17 08:52 Dose: 50 mg Trolamine Salicylate (Aspercreme 10%) 0 gm TOP Q1H PRN PRN Reason: back pain Last Admin: 09/27/17 08:49 Dose: 1 applic Discontinued Medications Albuterol/Ipratropium (Duoneb 3.0-0.5 Mg/3 Ml) 3 ml NEB QIDRT [facility] Enoxaparin Sodium (Lovenox) 30 mg SUBCUT Q24H [facility] Last Admin: 09/22/17 15:02 Dose: 30 mg Sodium Chloride (Normal Saline) 1,000 mls @ 250 mls/hr IV ASDIRECTED [facility] Last Admin: 09/22/17 12:47 Dose: 250 mls/hr Lactated Ringer's (Ringers, Lactated) 1,000 mls @ 125 mls/hr IV ASDIRECTED [facility] Last Admin: 09/23/17 07:04 Dose: 125 mls/hr Lactated Ringer's (Ringers, Lactated) 1,000 mls @ 250 mls/hr IV ASDIRECTED [facility] Stop: 09/22/17 20:00 Last Admin: 09/22/17 14:36 Dose: 250 mls/hr Ferric Sodium Gluconate Complex 250 mg/ Sodium Chloride 120 mls @ 50 mls/hr IV ONETIME ONE Stop: 09/23/17 13:23 Last Admin: 09/23/17 12:15 Dose: 50 mls/hr Ferric Sodium Gluconate Complex 250 mg/ Sodium Chloride 120 mls @ 50 mls/hr IV ONETIME ONE Stop: 09/24/17 11:23 Last Admin: 09/24/17 09:20 Dose: 50 mls/hr Insulin Detemir (Levemir) 24 unit SUBCUT DAILY [facility] Last Admin: 09/26/17 08:02 Dose: 24 units Tamsulosin HCl (Flomax) 0.4 mg PO DAILY [facility] Last Admin: 09/27/17 09:12 Dose: Not Given - Exam Quality Assessment: Denies: Supplemental Oxygen General: Reports: Alert, Oriented, Cooperative, No Acute Distress Neck: Reports: Supple Lungs: Reports: Normal Respiratory Effort GI/Abdominal Exam: No Distention Back Exam: Reports: Muscle Spasm (right upper back/lower neck) Extremities: No Pedal Edema Psy/Mental Status: Reports: Alert, Normal Affect *Q Meaningful Use (DIS) - VTE *Q VTE Criteria *Q: VTE Pharmacological Contraindications *Q: Renal Impairment - Stroke *Q Stroke Criteria *Q: - AMI *Q AMI Criteria *Q:
[2017-09-27 13:44] VITALS: BP 150/62
[2017-09-27] MEDS ORDERED: Insulin Detemir 100 Units/ML 3 ML Pen SUBCUT SCH (21:00)
[2017-09-27] MEDS ORDERED: Tamsulosin 0.4 MG Cap.ER PO SCH (21:00)
== END 2017-09-27 14:01 | DRG 312 ==
LOC: JP.ED 10:07 → JP.MS 12:05
PROVIDERS: ADMIT Hospitalist; ATTEND Internal Medicine
DX: I95.1 Orthostatic hypotension (principal); R91.8 Other nonspecific abnormal finding of lung field; I12.9 Hypertensive chronic kidney disease with stage 1 through stage 4 chronic kidney disease, or unspecified chronic kidney disease; N18.3 Chronic kidney disease, stage 3 (moderate); E11.22 Type 2 diabetes mellitus with diabetic chronic kidney disease; E11.40 Type 2 diabetes mellitus with diabetic neuropathy, unspecified; Z79.4 Long term (current) use of insulin; M54.89 Other dorsalgia; M54.2 Cervicalgia; R53.1 Weakness; J84.10 Pulmonary fibrosis, unspecified; D64.9 Anemia, unspecified; M62.830 Muscle spasm of back; H54.7 Unspecified visual loss; Z79.82 Long term (current) use of aspirin; Z79.52 Long term (current) use of systemic steroids; Z85.038 Personal history of other malignant neoplasm of large intestine
CPT/HCPCS: 36415; 71046; 71046-26; 71250; 71250-26; 72128; 72128-26; 80048; 80053; 81001; 82550; 82607; 82746; 82962; 83550; 83605; 83615; 83880; 84443; 84484; 85025; 85045; 85060; 87040; 87804; 93005; 93010; 94667; 94762; 97140-GP; 97162-GP; 97530-GP; 97535-GP; 99284; 99285-25; A9270-GY; J1650; J2916; J7030; J7120